=== PATIENT | male | born 1980 | race Caucasian/White ===

== ENCOUNTER 2017-01-07 03:12 | Emergency (ER) | payer OTHER ==
[~2017-01-07 03:12] MED LIST: IBUPPOW25 OR; PERCOCET OR; ZANA4TAB PO
[2017-01-07 04:14] LABS: ANION GAP 8 MEQ/L (8-16); BLOOD UREA NITROGEN 19 MG/DL (7-18); CARBON DIOXIDE LEVEL 29 MEQ/L (21-32); CHLORIDE LEVEL 107 MEQ/L (98-107); CREATININE FOR GFR 0.93 MG/DL (0.70-1.30); GLOMERULAR FILTRATION RATE > 60.0 (>60); GLUCOSE, FASTING 100 MG/DL (70-105); POTASSIUM SERUM 4.1 MEQ/L (3.5-5.1); SODIUM LEVEL 144 MEQ/L (136-145)
[2017-01-07] MEDS ORDERED: LOSARTAN 25 MG TAB As Ordered ONE (04:34)
--- NOTE | 2017-01-07 04:44 | EDDOCDS ---
Nurse's Notes [facility] Name: Zenon Hand Jr Age: 36 yrs Sex: Male : 1980 Arrival Date: 01/07/2017 Time: 03:12 Bed 9 Private MD: Diagnosis: Chondrocostal junction syndrome [Tietze];Essential (primary) hypertension Presentation: 01/07 03:16 Presenting complaint: Patient states: left sided chest pain that started about 1 week nn1 ago, reports pain worse when laughing or coughing. Reports pain is sharp, pain is intermittent. Aspirin was not taken prior to arrival. Adult Sepsis Screening: The patient does not have new or worsening altered mentation. Patient's respiratory rate is less than 22. Systolic blood pressure is greater than 100. Patient has a qSOFA score of 0- Negative Sepsis Screen. Suicide/Homicide risk assessment- the patient denies having any suicidal and/or homicidal ideations and does not present with any other emotional, behavioral or mental health complaints. Status: Patient is not a employment services director or dependent. Transition of care: patient was not received from another setting of care. 03:16 Acuity: JOSHUA Level 3 nn1 03:16 Method Of Arrival: Walkin/Carried/Asstd nn1 Triage Assessment: 03:19 General: Appears in no apparent distress, comfortable, Behavior is appropriate for age, nn1 cooperative. Pain: Location: anterior aspect of left upper chest Pain currently is 1 out of 10 on a pain scale. At worst was 8 out of 10 on a pain scale. Quality of pain is described as sharp, Pain began 1 week Aggravated by Laughing. Pt Declines HIV testing. Neurological: Level of Consciousness is awake, alert, obeys commands. Cardiovascular: Capillary refill < 3 seconds Chest pain is described as mild, radiates Does not radiate. episodes are intermittent began 1 week ago. Respiratory: Airway is patent Respiratory effort is even, unlabored, Respiratory pattern is regular, symmetrical. GI: No deficits noted. Derm: Skin is pink, warm & dry. 03:24 General: Patient reports he drank a kickstart prior to arrival. . nn1 Historical: - Allergies: No known drug Allergies; - Home Meds: 1. none - PMHx: none; - PSHx: back surgery; - The history from nurses notes was reviewed: and elements of the historical information I have obtained differs from that reported to nursing. - Social history: Smoking status: Patient uses tobacco products, heavy tobacco smoker. No barriers to communication noted, The patient speaks fluent Bhutanese, Speaks appropriately for age. - : The pt / caregiver states he / she is not on anticoagulants. Home medication list is obtained from the patient. - Hospitalizations: : No recent hospitalization is reported. - Exposure Risk Screening:: None identified. - Immunization history:: All immunizations up-to-date. - Family history: Not pertinent. - Social history:: the patient is a non-smoker, the patient drinks alcohol, socially. Screenin:36 Screening information is obtained from the patient. Fall risk: No risks identified. mlc Assistance ADL's: requires no assistance with activities of daily living. Abuse/DV Screen: The patient / caregiver reports he/she is: not in a situation that causes fear, pain or injury. Nutritional screening: No deficits noted. Advance Directives: Currently, there is no health care proxy. There is no Power of Transmission Maintenance Supervisor. home support is adequate. Assessment: 03:36 General: Appears in no apparent distress, comfortable, Behavior is cooperative, pt mlc laughing joking with staff. Pain: Denies pain. Neurological: Level of Consciousness is awake, alert, Oriented to person, place, time. Cardiovascular: Capillary refill < 3 seconds Heart tones S1 S2 present Chest pain is denied. Respiratory: Airway is patent Respiratory effort is even, unlabored, Respiratory pattern is regular, Breath sounds are clear bilaterally. Reports pain with cough. Derm: Skin is normal. 04:42 General: Appears in no apparent distress, comfortable, Behavior is cooperative. Pain: mlc Denies pain. Neurological: Level of Consciousness is awake, alert, Oriented to person, place, time. Respiratory: Airway is patent Respiratory effort is even, unlabored, Respiratory pattern is regular. Vital Signs: 03:22 BP 182 / 123 LA Sitting (auto/reg); Pulse 88; Resp 18; Temp 98.7; Pulse Ox 99% ; Weight nn1 99.79 kg; Height 5 ft. 11 in. (180.34 cm); Pain 1/10; 03:22 BP 207 / 120 RA Sitting (auto/reg); nn1 03:36 BP 168 / 106; Pain 0/10; mlc 04:42 BP 155 / 101; Pulse 78; Resp 18; Temp 96.9; Pulse Ox 100% ; Pain 0/10; mlc 03:22 Body Mass Index 30.68 (99.79 kg, 180.34 cm) nn1 Vitals: 03:22 Log In Time: January 07, 2017 at 03:13. nn1 ED Course: 03:13 Patient visited by Pinky Payne Reg. hs2 03:13 Patient moved to Waiting hs2 03:18 Triage Initiated nn1 03:25 Marissa Kemp,STELLA is Primary Nurse. nn1 03:25 Patient moved to 9 nn1 03:29 Max Antony MD is Attending Physician. pc 03:32 Patient visited by Max Antony MD. pc 03:37 Patient visited by Marissa Kemp RN. mlc 03:49 MED Profile Sent. mlc 03:50 Patient visited by Shelley Chavira PCA. cln 03:50 EKG done. (by ED staff). Reviewed by Max Antony MD. cln 04:11 [facility] Payment Agreement was scanned into [employer] and attached to record. pm4 04:33 Panfilo Orr MD is Referral Physician. pc 04:42 The patient / caregiver is instructed regarding the plan of care and ED course. Cardiac mlc monitoring not applicable on this patient. 04:42 No IV's were initiated during this patient's visit. No procedures done that require mlc assistance. Administered Medications: 04:42 Drug: Losartan 50 mg [losartan 25 mg tablet (2 tabs)] Route: PO; mlc 04:42 Follow up: Response: Pt left department before re-evaluation is appropriate mlc Order Results: Lab Order: MED Profile; SPEC'M 01/07/17 03:47 Test: GLUCOSE, FASTING; Value: 100; Range: 70-105; Units: MG/DL; Status: F Test: BLOOD UREA NITROGEN; Value: 19; Range: 7-18; Abnormal: Above high normal; Units: MG/DL; Status: F Test: CREATININE FOR GFR; Value: 0.93; Range: 0.70-1.30; Units: MG/DL; Status: F Test: GLOMERULAR FILTRATION RATE; Value: > 60.0; Range: >60; Status: F Test: SODIUM LEVEL; Value: 144; Range: 136-145; Units: MEQ/L; Status: F Test: POTASSIUM SERUM; Value: 4.1; Range: 3.5-5.1; Units: MEQ/L; Status: F Test: CHLORIDE LEVEL; Value: 107; Range: 98-107; Units: MEQ/L; Status: F Test: CARBON DIOXIDE LEVEL; Value: 29; Range: 21-32; Units: MEQ/L; Status: F Test: ANION GAP; Value: 8; Range: 8-16; Units: MEQ/L; Status: F Test: CALCIUM LEVEL; Value: 9.0; Range: 8.5-10.1; Units: MG/DL; Status: F Test Note: ; Units are mL/min/1.73 m2 Chronic Kidney Disease Staging per NKF: Stage I & II GFR >=60 Normal to Mildly Decreased Stage III GFR 30-59 Moderately Decreased Stage IV GFR 15-29 Severely Decreased Stage V GFR <15 Very Little GFR Left ESRD GFR <15 on ELECTRIFICATION ADVISER Outcome: 04:33 Discharge ordered by Provider. 04:42 Discharge Assessment: Patient awake, alert and oriented x 3. No cognitive and/or mlc functional deficits noted. Patient verbalized understanding of disposition instructions. patient administered narcotics - no. The following High Risk Discharge criteria are identified: None. Discharged to home ambulatory, with significant other. Condition: good Condition: stable. Discharge instructions given to patient, Instructed on discharge instructions, follow up and referral plans. medication usage, Demonstrated understanding of instructions, medications, Pt was receptive of discharge instructions/ teaching. Prescriptions given X 1. No special radiology studies were completed. Property sent home with patient. 04:44 Patient left the ED. mlc Signatures: Max Antony MD MD pc Booth, Mandy, RN RN mlc Nunez, Nikkole, RN RN nn1 Pinky Payne, Reg Reg hs2 Cait, Shelley, DRY ICE MACHINE OPERATOR DRY ICE MACHINE OPERATOR cln Polo Byrd, Reg Reg pm4 MTDD
--- NOTE | 2017-01-07 04:44 | EDDOCDS ---
Physician Documentation [facility] Name: Zenon Hand Jr Age: 36 yrs Sex: Male : 1980 Arrival Date: 01/07/2017 Time: 03:12 Bed 9 Private MD: Disposition: 01/07 04:31 Critical Care: Critical care not applicable. pc Disposition: 01/07/17 04:33 Discharged to Home/Self Care. Impression: Chondrocostal junction syndrome [Tietze], Essential (primary) hypertension. - Condition is Stable. - Discharge Instructions: Costochondritis, Hypertension. - Prescriptions for losartan 50 mg Oral tablet - take 1 tablet by ORAL route once daily; 30 tablet. - Medication Reconciliation, Local Pharmacy Hours form. - Follow up: Panfilo Orr MD; When: Call to arrange an appointment; Reason: To establish care. - Problem is an ongoing problem. - Symptoms are unchanged. HPI: 03:33 This 36 yrs old Male presents to ER via Walkin/Carried/Asstd with complaints pc of Chest Pain. 03:33 The history is obtained from the patient. Symptoms began suddenly 1 weeks ago, while pc wrestling with his kid and he fell to the floor. Symptoms It only hurts when he lifts using his left arm, laughs, coughs or sneezes. At its worst, the symptoms were a 5 out of 10. In the emergency department, the symptoms are a 0 out of 10. The chest pain is described as sharp, stabbing. It is located primarily in the mid-sternal area along 4th and 5th CCM. The pain does not radiate. The patient has not experienced similar symptoms in the past. The patient has not recently seen a physician. Historical: - Allergies: No known drug Allergies; - Home Meds: 1. none - PMHx: none; - PSHx: back surgery; - The history from nurses notes was reviewed: and elements of the historical information I have obtained differs from that reported to nursing. - Social history: Smoking status: Patient uses tobacco products, heavy tobacco smoker. No barriers to communication noted, The patient speaks fluent Yoruba, Speaks appropriately for age. - : The pt / caregiver states he / she is not on anticoagulants. Home medication list is obtained from the patient. - Hospitalizations: : No recent hospitalization is reported. - Exposure Risk Screening:: None identified. - Immunization history:: All immunizations up-to-date. - Family history: Not pertinent. - Social history:: the patient is a non-smoker, the patient drinks alcohol, socially. ROS: 03:33 All systems are negative except as listed. The cardiovascular, respiratory, pc gastrointestinal and neurological components are also addressed in the HPI. Exam: 03:33 General Appearance: alert, no acute distress. pc 03:33 ENT: ear, nose and throat normal, pharynx normal. 03:33 Neck: supple, non-tender, no masses are appreciated. 03:33 Respiratory: no respiratory distress, normal breath sounds, Chest tenderness in the mid-sternal area along 4th and 5th CCM, is associated with palpation. 03:33 Cardiovascular: regular pulse rate, regular heart rhythm, normal heart sounds, equal and full pulses bilaterally. 03:33 Abdomen: soft, non-tender, no organomegaly, normal bowel sounds. 03:33 Skin: skin color is normal, warm, dry. 03:33 Extremities: The extremities have a grossly normal appearance, are non-tender, without acute ROM abnormalities. 03:33 Neuro: alert, oriented to person, place and time. Vital Signs: 03:22 BP 182 / 123 LA Sitting (auto/reg); Pulse 88; Resp 18; Temp 98.7; Pulse Ox 99% ; Weight nn1 99.79 kg / 220 lbs; Height 5 ft. 11 in. (180.34 cm); Pain 1/10; 03:22 BP 207 / 120 RA Sitting (auto/reg); nn1 03:36 BP 168 / 106; Pain 0/10; mlc 04:42 BP 155 / 101; Pulse 78; Resp 18; Temp 96.9; Pulse Ox 100% ; Pain 0/10; mlc 03:22 Body Mass Index 30.68 (99.79 kg, 180.34 cm) nn1 MDM: 03:33 Differential diagnosis: left costochondritis r/o fracture; elevated BP, likely pc longstanding HTN as his BP has been elevated on all ED records dating back to 2008. Plan: imaging, meds. 03:34 Rib Unilat W/PA Chest Only Ordered. EDMS 03:40 MED Profile Ordered. EDMS 03:40 ECG WITH READING ER PHYS+CARDIAG ordered. EDMS 03:57 Test interpretation: EKG. pc 04:05 Financial registration complete. pm4 04:11 [facility] Payment Agreement was scanned into [employer] and attached to record. pm4 04:17 MED Profile Reviewed. pc 04:18 Data reviewed: old medical records, vital signs, nurses notes, EKG(s), lab test pc results, all radiology studies and available results. Test interpretation: LAB - all labs as ordered have been reviewed, interpreted and considered in the overall management of the clinical presentation; X-RAY - interpreted by me, Ribs Left Normal. 04:31 The patient has been re-examined and re-evaluated. There is no appreciated change of pc the patient's symptoms at this time. ED course: He has no end organ complaints. He will be started on losartan and referred to Dr. Orr for further HTN management . Disposition: The historical points, examination findings, and any diagnostic results supporting the provided diagnosis, were discussed with the patient or legal guardian. The need for outpatient follow up with the provider listed on their discharge instructions was discussed. They were encouraged to return to [facility], or the nearest ED, if symptoms worsen/persist, or for any other questions/concerns. 04:33 Losartan 50 mg PO once ordered. pc EC:57 Rate is 79 beats/min. Rhythm is regular, Normal Sinus Rhythm. QRS [place] is Normal. ND pc interval is normal. QRS interval is normal. QT interval is normal. Q waves are Present in leads II, III, aVF. T waves are Normal. No ST changes noted. Clinical impression: Normal Sinus Rhythm. Administered Medications: 04:42 Drug: Losartan 50 mg [losartan 25 mg tablet (2 tabs)] Route: PO; [facility] 04:42 Follow up: Response: Pt left department before re-evaluation is appropriate [facility] Signatures: Dispatcher [employer] EDMS Max Antony MD MD pc Booth, Mandy, RN RN Alma Wilkerson RN RN nn1 Polo Byrd, Reg Reg pm4 The chart was reviewed and I authenticate all verbal orders and agree with the evaluation and treatment provided.Corrections: (The following items were deleted from the chart) 03:39 03:33 Differential diagnosis: left costochondritis r/o fracture; elevated BP, likely pc longstanding HTN as his BP was elevated in 2012 as well pc Attachments: 04:11 [facility] Payment Agreement pm4 MTDD
--- NOTE | 2017-01-07 07:51 | REP ---
Clinical: Trauma. Technique: Frontal view of the chest with multiple views of the left hemithorax. Findings: Frontal view of the chest demonstrates no acute cardiopulmonary process. Trace linear left lower lobe atelectasis cannot be excluded. Multiple views of the left hemithorax demonstrates no obvious acute rib fracture or pathology. Impression: Normal left rib series. Trace left lower lobe plate-like atelectasis. Signed by Roberto Carlos Man MD 01/07/2017 07:42 A
--- NOTE | 2017-01-08 20:56 | ECGEPIP ---
Stationary ECG Study [facility] - ED Test Date: 2017-01-07 Pat Name: RADHA CHAPPELL JR Department: Room: - Gender: M [employer]: : 1980 Requested By: Max Perez Order Number: [id number] Reading MD: Tiffany Nagel Measurements Intervals [place] Rate: 79 P: 41 MT: 172 QRS: 62 QRSD: 103 T: 44 QT: 367 QTc: 423 Interpretive Statements SINUS RHYTHM NSTTW ABNORMALITY NO PRIOR FOR COMPARISON Electronically Signed On 01-08-2017 20:56:15 EST by Tiffany Nagel
--- NOTE | 2017-01-09 05:44 | EDDOCDS ---
Nurse's Notes [facility] Name: Zenon Chappell Jr Age: 36 yrs Sex: Male : 1980 Arrival Date: 01/07/2017 Time: 03:12 Bed 9 Private MD: Diagnosis: Chondrocostal junction syndrome [Tietze];Essential (primary) hypertension Presentation: 01/07 03:16 Presenting complaint: Patient states: left sided chest pain that started about 1 week nn1 ago, reports pain worse when laughing or coughing. Reports pain is sharp, pain is intermittent. Aspirin was not taken prior to arrival. Adult Sepsis Screening: The patient does not have new or worsening altered mentation. Patient's respiratory rate is less than 22. Systolic blood pressure is greater than 100. Patient has a qSOFA score of 0- Negative Sepsis Screen. Suicide/Homicide risk assessment- the patient denies having any suicidal and/or homicidal ideations and does not present with any other emotional, behavioral or mental health complaints. Status: Patient is not a special services agent or dependent. Transition of care: patient was not received from another setting of care. 03:16 Acuity: JOSHUA Level 3 nn1 03:16 Method Of Arrival: Walkin/Carried/Asstd nn1 Triage Assessment: 03:19 General: Appears in no apparent distress, comfortable, Behavior is appropriate for age, nn1 cooperative. Pain: Location: anterior aspect of left upper chest Pain currently is 1 out of 10 on a pain scale. At worst was 8 out of 10 on a pain scale. Quality of pain is described as sharp, Pain began 1 week Aggravated by Laughing. Pt Declines HIV testing. Neurological: Level of Consciousness is awake, alert, obeys commands. Cardiovascular: Capillary refill < 3 seconds Chest pain is described as mild, radiates Does not radiate. episodes are intermittent began 1 week ago. Respiratory: Airway is patent Respiratory effort is even, unlabored, Respiratory pattern is regular, symmetrical. GI: No deficits noted. Derm: Skin is pink, warm & dry. 03:24 General: Patient reports he drank a kickstart prior to arrival. . nn1 Historical: - Allergies: No known drug Allergies; - Home Meds: 1. none - PMHx: none; - PSHx: back surgery; - The history from nurses notes was reviewed: and elements of the historical information I have obtained differs from that reported to nursing. - Social history: Smoking status: Patient uses tobacco products, heavy tobacco smoker. No barriers to communication noted, The patient speaks fluent Anguillan, Speaks appropriately for age. - : The pt / caregiver states he / she is not on anticoagulants. Home medication list is obtained from the patient. - Hospitalizations: : No recent hospitalization is reported. - Exposure Risk Screening:: None identified. - Immunization history:: All immunizations up-to-date. - Family history: Not pertinent. - Social history:: the patient is a non-smoker, the patient drinks alcohol, socially. Screenin:36 Screening information is obtained from the patient. Fall risk: No risks identified. mlc Assistance ADL's: requires no assistance with activities of daily living. Abuse/DV Screen: The patient / caregiver reports he/she is: not in a situation that causes fear, pain or injury. Nutritional screening: No deficits noted. Advance Directives: Currently, there is no health care proxy. There is no Power of Vba Developer. home support is adequate. Assessment: 03:36 General: Appears in no apparent distress, comfortable, Behavior is cooperative, pt mlc laughing joking with staff. Pain: Denies pain. Neurological: Level of Consciousness is awake, alert, Oriented to person, place, time. Cardiovascular: Capillary refill < 3 seconds Heart tones S1 S2 present Chest pain is denied. Respiratory: Airway is patent Respiratory effort is even, unlabored, Respiratory pattern is regular, Breath sounds are clear bilaterally. Reports pain with cough. Derm: Skin is normal. 04:42 General: Appears in no apparent distress, comfortable, Behavior is cooperative. Pain: mlc Denies pain. Neurological: Level of Consciousness is awake, alert, Oriented to person, place, time. Respiratory: Airway is patent Respiratory effort is even, unlabored, Respiratory pattern is regular. Vital Signs: 03:22 BP 182 / 123 LA Sitting (auto/reg); Pulse 88; Resp 18; Temp 98.7; Pulse Ox 99% ; Weight nn1 99.79 kg; Height 5 ft. 11 in. (180.34 cm); Pain 1/10; 03:22 BP 207 / 120 RA Sitting (auto/reg); nn1 03:36 BP 168 / 106; Pain 0/10; mlc 04:42 BP 155 / 101; Pulse 78; Resp 18; Temp 96.9; Pulse Ox 100% ; Pain 0/10; mlc 03:22 Body Mass Index 30.68 (99.79 kg, 180.34 cm) nn1 Vitals: 03:22 Log In Time: January 07, 2017 at 03:13. nn1 ED Course: 03:13 Patient visited by Pinky Payne Reg. hs2 03:13 Patient moved to Waiting hs2 03:18 Triage Initiated nn1 03:25 Marissa Kemp,STELLA is Primary Nurse. nn1 03:25 Patient moved to 9 nn1 03:29 Max Antony MD is Attending Physician. pc 03:32 Patient visited by Max Antony MD. pc 03:37 Patient visited by Marissa Kemp RN. mlc 03:49 MED Profile Sent. mlc 03:50 Patient visited by Shelley Chavira PCA. cln 03:50 EKG done. (by ED staff). Reviewed by Max Antony MD. cln 04:11 [facility] Payment Agreement was scanned into [employer] and attached to record. pm4 04:33 Panfilo Orr MD is Referral Physician. pc 04:42 The patient / caregiver is instructed regarding the plan of care and ED course. Cardiac mlc monitoring not applicable on this patient. 04:42 No IV's were initiated during this patient's visit. No procedures done that require mlc assistance. 08:14 Rib Unilat W/PA Chest Only Returned. EDMS 14:00 ECG/EKG was scanned into [employer] and attached to record. 01/08 21:17 EKG-ADULT Returned. EDMS Administered Medications: 01/07 04:42 Drug: Losartan 50 mg [losartan 25 mg tablet (2 tabs)] Route: PO; mlc 04:42 Follow up: Response: Pt left department before re-evaluation is appropriate mlc Order Results: Lab Order: MED Profile; SPEC'M 01/07/17 03:47 Test: GLUCOSE, FASTING; Value: 100; Range: 70-105; Units: MG/DL; Status: F Test: BLOOD UREA NITROGEN; Value: 19; Range: 7-18; Abnormal: Above high normal; Units: MG/DL; Status: F Test: CREATININE FOR GFR; Value: 0.93; Range: 0.70-1.30; Units: MG/DL; Status: F Test: GLOMERULAR FILTRATION RATE; Value: > 60.0; Range: >60; Status: F Test: SODIUM LEVEL; Value: 144; Range: 136-145; Units: MEQ/L; Status: F Test: POTASSIUM SERUM; Value: 4.1; Range: 3.5-5.1; Units: MEQ/L; Status: F Test: CHLORIDE LEVEL; Value: 107; Range: 98-107; Units: MEQ/L; Status: F Test: CARBON DIOXIDE LEVEL; Value: 29; Range: 21-32; Units: MEQ/L; Status: F Test: ANION GAP; Value: 8; Range: 8-16; Units: MEQ/L; Status: F Test: CALCIUM LEVEL; Value: 9.0; Range: 8.5-10.1; Units: MG/DL; Status: F Test Note: ; Units are mL/min/1.73 m2 Chronic Kidney Disease Staging per NKF: Stage I & II GFR >=60 Normal to Mildly Decreased Stage III GFR 30-59 Moderately Decreased Stage IV GFR 15-29 Severely Decreased Stage V GFR <15 Very Little GFR Left ESRD GFR <15 on BINDER CUTTER HAND Radiology Order: Rib Unilat W/PA Chest Only Test: Rib Unilat W/PA Chest Only REASON FOR EXAMINATION: Trauma; Clinical: Trauma.; ; Technique: Frontal view of the chest with multiple views of the left; hemithorax.; ; Findings:; Frontal view of the chest demonstrates no acute cardiopulmonary process. Trace; linear left lower lobe atelectasis cannot be excluded. Multiple views of the; left hemithorax demonstrates no obvious acute rib fracture or pathology.; ; Impression:; Normal left rib series. Trace left lower lobe plate-like atelectasis.; ; ; Signed by; Roberto Carlos Man MD 01/07/2017 07:42 A; Radiology Order: EKG-ADULT Test: EKG-ADULT REASON FOR EXAMINATION: HTN; Stationary ECG Study; [facility] - ED; ; Test Date: 2017-01-07; Pat Name: ZENON CHAPPELL JR Department:; Room: -; Gender: M Documentation Billing Clerk:; : 1980 Requested By: Max Perez; Order Number: [id number] Reading MD: Tiffany Nagel; Measurements; Intervals [place]; Rate: 79 P: 41; ND: 172 QRS: 62; QRSD: 103 T: 44; QT: 367; QTc: 423; Interpretive Statements; SINUS RHYTHM; NSTTW ABNORMALITY; NO PRIOR FOR COMPARISON; Electronically Signed On 01-08-2017 20:56:15 EST by Tiffany Nagel; Outcome: 04:33 Discharge ordered by Provider. pc 04:42 Discharge Assessment: Patient awake, alert and oriented x 3. No cognitive and/or mlc functional deficits noted. Patient verbalized understanding of disposition instructions. patient administered narcotics - no. The following High Risk Discharge criteria are identified: None. Discharged to home ambulatory, with significant other. Condition: good Condition: stable. Discharge instructions given to patient, Instructed on discharge instructions, follow up and referral plans. medication usage, Demonstrated understanding of instructions, medications, Pt was receptive of discharge instructions/ teaching. Prescriptions given X 1. No special radiology studies were completed. Property sent home with patient. 04:44 Patient left the ED. mlc Signatures: Dispatcher [employer] EDMS Max Antony MD MD pc Taisha Shell, Reg Reg gb Marissa KempRN RN Alma Wilkerson RN RN nn1 Pinky Payne, Reg Reg hs2 Shelley Chavira, ROSE DOCUMENT CONTROL ASSISTANT cln Polo Byrd, Reg Reg pm4 Chart Complete MTDD
--- NOTE | 2017-01-09 05:44 | EDDOCDS ---
Physician Documentation [facility] [place] Name: Zenon Hand Jr Age: 36 yrs Sex: Male : 1980 Arrival Date: 01/07/2017 Time: 03:12 Bed 9 Private MD: Disposition: 01/07 04:31 Critical Care: Critical care not applicable. pc Disposition: 01/07/17 04:33 Discharged to Home/Self Care. Impression: Chondrocostal junction syndrome [Tietze], Essential (primary) hypertension. - Condition is Stable. - Discharge Instructions: Costochondritis, Hypertension. - Prescriptions for losartan 50 mg Oral tablet - take 1 tablet by ORAL route once daily; 30 tablet. - Medication Reconciliation, Local Pharmacy Hours form. - Follow up: Panfilo Orr MD; When: Call to arrange an appointment; Reason: To establish care. - Problem is an ongoing problem. - Symptoms are unchanged. HPI: 03:33 This 36 yrs old Male presents to ER via Walkin/Carried/Asstd with complaints pc of Chest Pain. 03:33 The history is obtained from the patient. Symptoms began suddenly 1 weeks ago, while pc wrestling with his kid and he fell to the floor. Symptoms It only hurts when he lifts using his left arm, laughs, coughs or sneezes. At its worst, the symptoms were a 5 out of 10. In the emergency department, the symptoms are a 0 out of 10. The chest pain is described as sharp, stabbing. It is located primarily in the mid-sternal area along 4th and 5th CCM. The pain does not radiate. The patient has not experienced similar symptoms in the past. The patient has not recently seen a physician. Historical: - Allergies: No known drug Allergies; - Home Meds: 1. none - PMHx: none; - PSHx: back surgery; - The history from nurses notes was reviewed: and elements of the historical information I have obtained differs from that reported to nursing. - Social history: Smoking status: Patient uses tobacco products, heavy tobacco smoker. No barriers to communication noted, The patient speaks fluent Estonian, Speaks appropriately for age. - : The pt / caregiver states he / she is not on anticoagulants. Home medication list is obtained from the patient. - Hospitalizations: : No recent hospitalization is reported. - Exposure Risk Screening:: None identified. - Immunization history:: All immunizations up-to-date. - Family history: Not pertinent. - Social history:: the patient is a non-smoker, the patient drinks alcohol, socially. ROS: 03:33 All systems are negative except as listed. The cardiovascular, respiratory, pc gastrointestinal and neurological components are also addressed in the HPI. Exam: 03:33 General Appearance: alert, no acute distress. pc 03:33 ENT: ear, nose and throat normal, pharynx normal. 03:33 Neck: supple, non-tender, no masses are appreciated. 03:33 Respiratory: no respiratory distress, normal breath sounds, Chest tenderness in the mid-sternal area along 4th and 5th CCM, is associated with palpation. 03:33 Cardiovascular: regular pulse rate, regular heart rhythm, normal heart sounds, equal and full pulses bilaterally. 03:33 Abdomen: soft, non-tender, no organomegaly, normal bowel sounds. 03:33 Skin: skin color is normal, warm, dry. 03:33 Extremities: The extremities have a grossly normal appearance, are non-tender, without acute ROM abnormalities. 03:33 Neuro: alert, oriented to person, place and time. Vital Signs: 03:22 BP 182 / 123 LA Sitting (auto/reg); Pulse 88; Resp 18; Temp 98.7; Pulse Ox 99% ; Weight nn1 99.79 kg / 220 lbs; Height 5 ft. 11 in. (180.34 cm); Pain 1/10; 03:22 BP 207 / 120 RA Sitting (auto/reg); nn1 03:36 BP 168 / 106; Pain 0/10; mlc 04:42 BP 155 / 101; Pulse 78; Resp 18; Temp 96.9; Pulse Ox 100% ; Pain 0/10; mlc 03:22 Body Mass Index 30.68 (99.79 kg, 180.34 cm) nn1 MDM: 03:33 Differential diagnosis: left costochondritis r/o fracture; elevated BP, likely pc longstanding HTN as his BP has been elevated on all ED records dating back to 2008. Plan: imaging, meds. 03:34 Rib Unilat W/PA Chest Only Ordered. EDMS 03:40 MED Profile Ordered. EDMS 03:40 ECG WITH READING ER PHYS+CARDIAG ordered. EDMS 03:57 Test interpretation: EKG. pc 04:05 Financial registration complete. pm4 04:11 [facility] Payment Agreement was scanned into [employer] and attached to record. pm4 04:17 MED Profile Reviewed. pc 04:18 Data reviewed: old medical records, vital signs, nurses notes, EKG(s), lab test pc results, all radiology studies and available results. Test interpretation: LAB - all labs as ordered have been reviewed, interpreted and considered in the overall management of the clinical presentation; X-RAY - interpreted by me, Ribs Left Normal. 04:31 The patient has been re-examined and re-evaluated. There is no appreciated change of pc the patient's symptoms at this time. ED course: He has no end organ complaints. He will be started on losartan and referred to Dr. Orr for further HTN management . Disposition: The historical points, examination findings, and any diagnostic results supporting the provided diagnosis, were discussed with the patient or legal guardian. The need for outpatient follow up with the provider listed on their discharge instructions was discussed. They were encouraged to return to [facility], or the nearest ED, if symptoms worsen/persist, or for any other questions/concerns. 04:33 Losartan 50 mg PO once ordered. pc 14:00 ECG/EKG was scanned into [employer] and attached to record. EC:57 Rate is 79 beats/min. Rhythm is regular, Normal Sinus Rhythm. QRS [place] is Normal. [place] pc interval is normal. QRS interval is normal. QT interval is normal. Q waves are Present in leads II, III, aVF. T waves are Normal. No ST changes noted. Clinical impression: Normal Sinus Rhythm. Administered Medications: 04:42 Drug: Losartan 50 mg [losartan 25 mg tablet (2 tabs)] Route: PO; [facility] [place] 04:42 Follow up: Response: Pt left department before re-evaluation is appropriate [facility] Signatures: Dispatcher [employer] EDMS Max Antony MD MD pc Taisha Shell, Reg Reg gb Marissa Kemp RN RN [facility] [place] Amla Salazar RN RN nn1 Polo Byrd, Reg Reg pm4 The chart was reviewed and I authenticate all verbal orders and agree with the evaluation and treatment provided.Corrections: (The following items were deleted from the chart) 03:39 03:33 Differential diagnosis: left costochondritis r/o fracture; elevated BP, likely pc longstanding HTN as his BP was elevated in 2012 as well pc Attachments: 04:11 [facility] Payment Agreement pm4 14:00 ECG/EKG gb Chart Complete MTDD
--- NOTE | 2017-01-09 05:44 | EDDOCDS ---
Physician Documentation [facility] Name: Zenon Hand Jr Age: 36 yrs Sex: Male : 1980 Arrival Date: 01/07/2017 Time: 03:12 Bed 9 Private MD: Disposition: 01/07 04:31 Critical Care: Critical care not applicable. pc Disposition: 01/07/17 04:33 Discharged to Home/Self Care. Impression: Chondrocostal junction syndrome [Tietze], Essential (primary) hypertension. - Condition is Stable. - Discharge Instructions: Costochondritis, Hypertension. - Prescriptions for losartan 50 mg Oral tablet - take 1 tablet by ORAL route once daily; 30 tablet. - Medication Reconciliation, Local Pharmacy Hours form. - Follow up: Panfilo Orr MD; When: Call to arrange an appointment; Reason: To establish care. - Problem is an ongoing problem. - Symptoms are unchanged. HPI: 03:33 This 36 yrs old Male presents to ER via Walkin/Carried/Asstd with complaints pc of Chest Pain. 03:33 The history is obtained from the patient. Symptoms began suddenly 1 weeks ago, while pc wrestling with his kid and he fell to the floor. Symptoms It only hurts when he lifts using his left arm, laughs, coughs or sneezes. At its worst, the symptoms were a 5 out of 10. In the emergency department, the symptoms are a 0 out of 10. The chest pain is described as sharp, stabbing. It is located primarily in the mid-sternal area along 4th and 5th CCM. The pain does not radiate. The patient has not experienced similar symptoms in the past. The patient has not recently seen a physician. Historical: - Allergies: No known drug Allergies; - Home Meds: 1. none - PMHx: none; - PSHx: back surgery; - The history from nurses notes was reviewed: and elements of the historical information I have obtained differs from that reported to nursing. - Social history: Smoking status: Patient uses tobacco products, heavy tobacco smoker. No barriers to communication noted, The patient speaks fluent Spanish, Speaks appropriately for age. - : The pt / caregiver states he / she is not on anticoagulants. Home medication list is obtained from the patient. - Hospitalizations: : No recent hospitalization is reported. - Exposure Risk Screening:: None identified. - Immunization history:: All immunizations up-to-date. - Family history: Not pertinent. - Social history:: the patient is a non-smoker, the patient drinks alcohol, socially. ROS: 03:33 All systems are negative except as listed. The cardiovascular, respiratory, pc gastrointestinal and neurological components are also addressed in the HPI. Exam: 03:33 General Appearance: alert, no acute distress. pc 03:33 ENT: ear, nose and throat normal, pharynx normal. 03:33 Neck: supple, non-tender, no masses are appreciated. 03:33 Respiratory: no respiratory distress, normal breath sounds, Chest tenderness in the mid-sternal area along 4th and 5th CCM, is associated with palpation. 03:33 Cardiovascular: regular pulse rate, regular heart rhythm, normal heart sounds, equal and full pulses bilaterally. 03:33 Abdomen: soft, non-tender, no organomegaly, normal bowel sounds. 03:33 Skin: skin color is normal, warm, dry. 03:33 Extremities: The extremities have a grossly normal appearance, are non-tender, without acute ROM abnormalities. 03:33 Neuro: alert, oriented to person, place and time. Vital Signs: 03:22 BP 182 / 123 LA Sitting (auto/reg); Pulse 88; Resp 18; Temp 98.7; Pulse Ox 99% ; Weight nn1 99.79 kg / 220 lbs; Height 5 ft. 11 in. (180.34 cm); Pain 1/10; 03:22 BP 207 / 120 RA Sitting (auto/reg); nn1 03:36 BP 168 / 106; Pain 0/10; mlc 04:42 BP 155 / 101; Pulse 78; Resp 18; Temp 96.9; Pulse Ox 100% ; Pain 0/10; mlc 03:22 Body Mass Index 30.68 (99.79 kg, 180.34 cm) nn1 MDM: 03:33 Differential diagnosis: left costochondritis r/o fracture; elevated BP, likely pc longstanding HTN as his BP has been elevated on all ED records dating back to 2008. Plan: imaging, meds. 03:34 Rib Unilat W/PA Chest Only Ordered. EDMS 03:40 MED Profile Ordered. EDMS 03:40 ECG WITH READING ER PHYS+CARDIAG ordered. EDMS 03:57 Test interpretation: EKG. pc 04:05 Financial registration complete. pm4 04:11 [facility] Payment Agreement was scanned into [employer] and attached to record. pm4 04:17 MED Profile Reviewed. pc 04:18 Data reviewed: old medical records, vital signs, nurses notes, EKG(s), lab test pc results, all radiology studies and available results. Test interpretation: LAB - all labs as ordered have been reviewed, interpreted and considered in the overall management of the clinical presentation; X-RAY - interpreted by me, Ribs Left Normal. 04:31 The patient has been re-examined and re-evaluated. There is no appreciated change of pc the patient's symptoms at this time. ED course: He has no end organ complaints. He will be started on losartan and referred to Dr. Orr for further HTN management . Disposition: The historical points, examination findings, and any diagnostic results supporting the provided diagnosis, were discussed with the patient or legal guardian. The need for outpatient follow up with the provider listed on their discharge instructions was discussed. They were encouraged to return to [facility], or the nearest ED, if symptoms worsen/persist, or for any other questions/concerns. 04:33 Losartan 50 mg PO once ordered. pc 14:00 ECG/EKG was scanned into [employer] and attached to record. EC:57 Rate is 79 beats/min. Rhythm is regular, Normal Sinus Rhythm. QRS [place] is Normal. [place] pc interval is normal. QRS interval is normal. QT interval is normal. Q waves are Present in leads II, III, aVF. T waves are Normal. No ST changes noted. Clinical impression: Normal Sinus Rhythm. Administered Medications: 04:42 Drug: Losartan 50 mg [losartan 25 mg tablet (2 tabs)] Route: PO; [facility] 04:42 Follow up: Response: Pt left department before re-evaluation is appropriate [facility] Signatures: Dispatcher [employer] EDMS Max Antony MD MD pc Taisha Shell, Reg Reg gb Marissa Kemp RN RN [facility] Alma Salazar RN RN nn1 Polo Byrd, Reg Reg pm4 The chart was reviewed and I authenticate all verbal orders and agree with the evaluation and treatment provided.Corrections: (The following items were deleted from the chart) 03:39 03:33 Differential diagnosis: left costochondritis r/o fracture; elevated BP, likely pc longstanding HTN as his BP was elevated in 2012 as well pc Attachments: 04:11 [facility] Payment Agreement pm4 14:00 ECG/EKG gb Chart Complete MTDD
== END 2017-01-07 04:44 | disposition home or self-care (01) ==
LOC: M ED 03:12
DX: M94.0 Chondrocostal junction syndrome [Tietze] (principal); I10 Essential (primary) hypertension

== ENCOUNTER 2019-02-16 12:09 | Emergency (ER) | payer OTHER ==
[~2019-02-16] VITALS: Ht 182.9 cm; Wt 120.8 kg
[2019-02-16 12:12] VITALS: BP 160/98
[2019-02-16] MEDS ORDERED: ROBA500T PO (13:54)
[2019-02-16] MEDS ORDERED: NAPR-50 PO (13:54)
[2019-02-16] MEDS ORDERED: METHOCARBAMOL 500 MG TAB PO ONE (14:00)
== END 2019-02-16 14:07 | disposition home or self-care (01) ==
LOC: M ED 12:09
DX: M54.5 Low back pain (principal); M62.830 Muscle spasm of back; F17.210 Nicotine dependence, cigarettes, uncomplicated; Z91.018 Allergy to other foods

== ENCOUNTER 2021-03-16 06:36 | Emergency (ER) | payer OTHER ==
[~2021-03-16] VITALS: Ht 182.9 cm; Wt 119.4 kg
[~2021-03-16 06:36] MED LIST changes: +NAPR-837 PO; +OXYC1TAB23 OR; -PERCOCET OR; +ROBA500T PO
[2021-03-16] MEDS ORDERED: IBUP-1022 PO (06:45)
[2021-03-16] MEDS ORDERED: NORCO, ANEXSIA 5/325MG TABLET (HYDROcodone/ACETAMINOPHEN) PO ONE (08:00)
[2021-03-16] MEDS ORDERED: predniSONE 20 MG TAB PO ONE (08:00)
[2021-03-16] MEDS ORDERED: CYCLOBENZAPRINE 10MG TABLET PO ONE (08:00)
--- NOTE | 2021-03-16 08:26 | REP ---
INDICATION: middle/L low back pain. COMPARISON: Comparison lumbar spine radiographs July 28, 2013 and January 24, 2013.. TECHNIQUE: Five views of the lumbar spine. FINDINGS: Lumbar vertebral body heights are preserved. Alignment is normal. There is no evidence of spondylolysis or spondylolisthesis. No bony destructive lesion is seen. No fracture or collapse is seen. Psoas margins are symmetric. Sacrum and SI joints are intact. Disc spaces are maintained. IMPRESSION: Negative lumbar spine radiographs. No acute abnormality. <Electronically signed by Darius Lewis > 03/16/21 [id number]
[2021-03-16] MEDS ORDERED: LIDO5DIS41 TOP (11:08)
[2021-03-16] MEDS ORDERED: IBUP80TA PO (11:08)
[2021-03-16] MEDS ORDERED: PRED20TA PO (11:08)
[2021-03-16] MEDS ORDERED: CYCL5TAB PO (11:08)
[2021-03-16 11:30] VITALS: BP 137/90
== END 2021-03-16 11:32 | disposition home or self-care (01) ==
LOC: M ED 06:36
DX: S29.012A Strain of muscle and tendon of back wall of thorax, initial encounter (principal); X58.XXXA Exposure to other specified factors, initial encounter; Y92.89 Other specified places as the place of occurrence of the external cause; I10 Essential (primary) hypertension; Z91.018 Allergy to other foods; F17.201 Nicotine dependence, unspecified, in remission

== ENCOUNTER 2023-06-12 12:25 | Emergency (ER) | payer OTHER ==
[~2023-06-12] VITALS: Ht 182.9 cm; Wt 128.6 kg
[~2023-06-12 12:25] MED LIST changes: +CYCL5TAB PO; +IBUP-1022 PO; +IBUP80TA PO; +LIDO5DIS41 TOP; +PRED20TA PO
[2023-06-12 13:38] LABS: BASO # 0.1 10^3/uL (0.0-0.2); BASO % 0.8 % (0.0-1.0); EOS # 0.3 10^3/uL (0.0-0.5); EOS % 2.5 % (0.0-3.0); HEMATOCRIT 45.8 % (42.0-52.0); HEMOGLOBIN 15.4 g/dl (13.5-17.5); LYMPH # 3.8 10^3/uL (1.5-5.0); LYMPH % 31.8 % (24.0-44.0); MEAN CORPUSCULAR HEMOGLOBIN 31.6 pg (27.0-33.0); MEAN CORPUSCULAR HGB CONC 33.6 g/dl (32.0-36.5); MEAN CORPUSCULAR VOLUME 93.9 fl (80.0-96.0); MONO # 1.1 10^3/uL (0.0-0.8); MONO % 8.9 % (2.0-8.0); NEUTROPHILS # 6.5 10^3/uL (1.5-8.5); NEUTROPHILS % 55.2 % (36.0-66.0); PLATELET COUNT, AUTOMATED 292 10^3/uL (150-450); RED BLOOD COUNT 4.88 10^6/uL (4.30-6.10); WHITE BLOOD COUNT 11.8 10^3/uL (4.0-10.0)
[2023-06-12 13:50] LABS: INR 0.86; PROTHROMBIN TIME 11.9 SECONDS (12.5-14.5)
[2023-06-12 13:51] LABS: PARTIAL THROMBOPLASTIN TIME 27.1 SECONDS (24.8-34.2)
[2023-06-12 14:02] LABS: CK-MB VALUE MASS 8.4 NG/ML (<3.6)
[2023-06-12 14:03] LABS: ALBUMIN 4.2 G/DL (3.2-5.2); ALKALINE PHOSPHATASE 75 U/L (46-116); ALT/SGPT 67 U/L (7.0-40); AST/SGOT 39 U/L (<34); BILIRUBIN,DIRECT < 0.1 MG/DL (<0.4); BILIRUBIN,TOTAL 0.4 MG/DL (0.3-1.2); BLOOD UREA NITROGEN 11 MG/DL (9-23); CALCIUM LEVEL 8.9 MG/DL (8.5-10.1); CARBON DIOXIDE LEVEL 25 MMOL/L (20-31); CHLORIDE LEVEL 106 MMOL/L (98-107); CREATININE FOR GFR 0.73 MG/DL (0.70-1.30); GLOMERULAR FILTRATION RATE > 60.0 (>60); GLUCOSE, FASTING 112 MG/DL (60-100); POTASSIUM SERUM 4.2 MMOL/L (3.5-5.1); SODIUM LEVEL 143 MMOL/L (136-145)
[2023-06-12 14:10] LABS: RSV AMPLIFICATION NEGATIVE (NEGATIVE)
[2023-06-12 14:11] LABS: CPK CREATINE PHOSPHOKINASE 179 U/L (46-171); MB/CK RELATIVE INDEX 4.69 (< OR =4)
[2023-06-12] MEDS ORDERED: ASPIRIN 81MG CHEW TABLET PO ONE (14:15)
[2023-06-12] MEDS ORDERED: HEPARIN SOD (PORCINE) 5000UNITS/ML 1ML VIAL/SYRINGE IV ONE (14:15)
[2023-06-12] MEDS ORDERED: HEPARIN DRIP 25,000 UNITS in IV 1 EA IV SCH (14:15)
[2023-06-12 15:14] LABS: CK-MB VALUE MASS 37.5 NG/ML (<3.6); MB/CK RELATIVE INDEX 6.72 (< OR =4)
[2023-06-12 16:34] VITALS: BP 162/91; TEMP 97.6; O2SAT 96
== END 2023-06-12 16:39 | disposition short-term general hospital (02) ==
LOC: M ED 12:25
DX: I21.4 Non-ST elevation (NSTEMI) myocardial infarction (principal); I10 Essential (primary) hypertension; M54.9 Dorsalgia, unspecified; F17.200 Nicotine dependence, unspecified, uncomplicated; Z91.018 Allergy to other foods; Z79.52 Long term (current) use of systemic steroids; Z79.899 Other long term (current) drug therapy

== ENCOUNTER → 2023-07-16 | Outpatient (REF) | payer OTHER ==
[2023-07-16 17:07] LABS: HEMOGLOBIN A1c 5.5 % (4.0-6.0)
[2023-07-16 17:23] LABS: ALBUMIN 3.9 G/DL (3.2-5.2); ALKALINE PHOSPHATASE 92 U/L (46-116); ALT/SGPT 63 U/L (7.0-40); AST/SGOT 27 U/L (<34); BILIRUBIN,TOTAL 0.6 MG/DL (0.3-1.2); BLOOD UREA NITROGEN 14 MG/DL (9-23); CALCIUM LEVEL 9.6 MG/DL (8.5-10.1); CARBON DIOXIDE LEVEL 24 MMOL/L (20-31); CHLORIDE LEVEL 106 MMOL/L (98-107); CHOLESTEROL LEVEL 185 MG/DL (<200); CHOLESTEROL RISK RATIO 5.81 (<5); CREATININE FOR GFR 0.72 MG/DL (0.70-1.30); GLOMERULAR FILTRATION RATE > 60.0 (>60); GLUCOSE, FASTING 95 MG/DL (60-100); HDL CHOLESTEROL 31.8 MG/DL (>40); NON-HDL-C 153.2 MG/DL; POTASSIUM SERUM 4.3 MMOL/L (3.5-5.1); SODIUM LEVEL 140 MMOL/L (136-145); THYROID STIMULATING HORMONE 1.685 uIU/ML (0.55-4.78); TOTAL PROTEIN 6.6 G/DL (5.7-8.2); TRIGLYCERIDES LEVEL 216 MG/DL (<150)
== END ==
LOC: M LAB REF 16:14
PROVIDERS: ATTEND Pediatrics
DX: E78.5 Hyperlipidemia, unspecified (principal); E66.9 Obesity, unspecified

== ENCOUNTER → 2024-01-07 | Outpatient (REF) | payer OTHER ==
[2024-01-07 18:39] LABS: CHOLESTEROL RISK RATIO 4.04 (<5); HDL CHOLESTEROL 36.6 MG/DL (>40); LDL CHOLESTEROL 85.2 MG/DL (<100); NON-HDL-C 111.4 MG/DL
== END ==
LOC: M LAB REF 16:16
PROVIDERS: ATTEND Pediatrics
DX: E78.5 Hyperlipidemia, unspecified (principal)

== ENCOUNTER → 2024-11-10 | Outpatient (REF) | payer OTHER ==
[~2024-11-10] MED LIST changes: -CYCL5TAB PO; +CYCL5TAB4 PO
[2024-11-10 19:56] LABS: BLOOD UREA NITROGEN 15 MG/DL (9-23); CALCIUM LEVEL 9.6 MG/DL (8.5-10.1); CARBON DIOXIDE LEVEL 26 MMOL/L (20-31); CHLORIDE LEVEL 106 MMOL/L (98-107); CHOLESTEROL LEVEL 130 MG/DL (<200); CHOLESTEROL RISK RATIO 3.81 (<5); CREATININE FOR GFR 0.79 MG/DL (0.70-1.30); GLOMERULAR FILTRATION RATE > 60.0 (>60); GLUCOSE, FASTING 81 MG/DL (60-100); HDL CHOLESTEROL 34.1 MG/DL (>40); LDL CHOLESTEROL 59.3 MG/DL (<100); NON-HDL-C 95.9 MG/DL; POTASSIUM SERUM 4.5 MMOL/L (3.5-5.1); SODIUM LEVEL 142 MMOL/L (136-145); TRIGLYCERIDES LEVEL 183 MG/DL (<150)
== END ==
LOC: M LAB REF 16:15
PROVIDERS: ATTEND Pediatrics
DX: E78.5 Hyperlipidemia, unspecified (principal); I10 Essential (primary) hypertension

== ENCOUNTER → 2024-12-22 | Outpatient (CLI) | payer OTHER ==
[2024-12-22 14:22] LABS: BASO # 0.1 10^3/uL (0.0-0.2); BASO % 0.7 % (0.0-1.0); EOS # 0.2 10^3/uL (0.0-0.5); EOS % 2.1 % (0.0-3.0); HEMATOCRIT 42.6 % (42.0-52.0); HEMOGLOBIN 14.2 g/dl (13.5-17.5); LYMPH # 4.6 10^3/uL (1.5-5.0); MEAN CORPUSCULAR HEMOGLOBIN 31.8 pg (27.0-33.0); MEAN CORPUSCULAR HGB CONC 33.3 g/dl (32.0-36.5); MEAN CORPUSCULAR VOLUME 95.5 fl (80.0-96.0); MONO # 0.9 10^3/uL (0.0-0.8); MONO % 8.2 % (2.0-8.0); NEUTROPHILS # 5.6 10^3/uL (1.5-8.5); NEUTROPHILS % 48.5 % (36.0-66.0); PLATELET COUNT, AUTOMATED 277 10^3/uL (150-450); RED BLOOD COUNT 4.46 10^6/uL (4.30-6.10); WHITE BLOOD COUNT 11.5 10^3/uL (4.0-10.0)
[2024-12-22 14:37] LABS: HEMOGLOBIN A1c 5.8 % (4.0-6.0)
[2024-12-22 14:49] LABS: ALBUMIN 3.7 G/DL (3.2-5.2); ALKALINE PHOSPHATASE 82 U/L (40-129); ALT/SGPT 46 U/L (7.0-40); AST/SGOT 20 U/L (<34); BILIRUBIN,TOTAL 0.7 MG/DL (0.3-1.2); BLOOD UREA NITROGEN 15 MG/DL (9-23); CALCIUM LEVEL 9.5 MG/DL (8.5-10.1); CARBON DIOXIDE LEVEL 25 MMOL/L (20-31); CHLORIDE LEVEL 112 MMOL/L (98-107); CHOLESTEROL LEVEL 129 MG/DL (<200); CHOLESTEROL RISK RATIO 3.85 (<5); CREATININE FOR GFR 0.67 MG/DL (0.70-1.30); GLOMERULAR FILTRATION RATE > 60.0 (>60); GLUCOSE, FASTING 92 MG/DL (60-100); HDL CHOLESTEROL 33.5 MG/DL (>40); LDL CHOLESTEROL 57.9 MG/DL (<100); NON-HDL-C 95.5 MG/DL; POTASSIUM SERUM 4.4 MMOL/L (3.5-5.1); SODIUM LEVEL 143 MMOL/L (136-145); TOTAL PROTEIN 6.5 G/DL (5.7-8.2); TRIGLYCERIDES LEVEL 188 MG/DL (<150)
== END ==
LOC: M LAB 13:41
PROVIDERS: ATTEND Internal Medicine Cardiovascular Disease
DX: I50.42 Chronic combined systolic (congestive) and diastolic (congestive) heart failure (principal)

== ENCOUNTER → 2025-06-22 | Outpatient (REF) | payer OTHER ==
[~2025-06-22] MED LIST changes: +LIDO1ADH93 TOP; -LIDO5DIS41 TOP
[2025-06-22 15:25] LABS: CREATININE, URINE 103.6 MG/DL; MALB URINE SIEMENS < 3.0 MG/L
[2025-06-22 17:45] LABS: CALCIUM LEVEL 9.1 MG/DL (8.5-10.1); CARBON DIOXIDE LEVEL 25 MMOL/L (20-31); CHLORIDE LEVEL 105 MMOL/L (98-107); CHOLESTEROL LEVEL 118 MG/DL (<200); CHOLESTEROL RISK RATIO 3.58 (<5); CREATININE FOR GFR 0.72 MG/DL (0.70-1.30); GLOMERULAR FILTRATION RATE > 90.0 (>60); LDL CHOLESTEROL 51.9 MG/DL (<100); NON-HDL-C 85.1 MG/DL; POTASSIUM SERUM 4.4 MMOL/L (3.5-5.1); SODIUM LEVEL 144 MMOL/L (136-145); TRIGLYCERIDES LEVEL 166 MG/DL (<150)
[2025-06-22 18:12] LABS: ESTIMATED AVERAGE GLUCOSE 126.0 MG/DL (60-110)
== END ==
LOC: M LAB REF 14:44
PROVIDERS: ATTEND Pediatrics
DX: I10 Essential (primary) hypertension (principal); E78.5 Hyperlipidemia, unspecified; Z68.39 Body mass index [BMI] 39.0-39.9, adult; E66.812 Obesity, class 2

== ENCOUNTER → 2025-10-13 | Outpatient (CLI) | payer OTHER ==
[~2025-10-13] MED LIST changes: -IBUP-1022 PO; +IBUP600T42 PO
== END ==
LOC: M SLEEP 20:00
PROVIDERS: ATTEND Physician Assistant
DX: G47.33 Obstructive sleep apnea (adult) (pediatric) (principal); R40.0 Somnolence; I25.2 Old myocardial infarction; Z86.69 Personal history of other diseases of the nervous system and sense organs